=== PATIENT | female | born 1985 | race Hispanic/Latino ===

== ENCOUNTER 2017-02-05 17:22 | Emergency (ER) | payer BC ==
[2017-02-05 17:34] VITALS: BP 122/68; PULSE 87; RESP 18; TEMP 98.6; O2SAT 100
[2017-02-05] MEDS ORDERED: Iohexol 240 (50 ml) PO STA (18:31)
--- NOTE | 2017-02-05 18:52 | ED PDOC ---
HPI: Abdomen Time Seen by Provider: 02/05/17 18:15 Chief Complaint (Nursing): Abdominal Pain Chief Complaint (Provider): Right-Sided Abdominal Pain History Per: Patient History/Exam Limitations: no limitations Onset/Duration Of Symptoms: Hrs Additional Complaint(s): 18:15 Jack Tang is a 31 year old female that presents to the ED with a chief complaint of RLQ abdominal pain. Patient states that the pain began at 4:30 AM this morning and was initially sharp, but has since become dull. She reports that she went to [facility] in [place] earlier today where they have her a full physical exam, including a pelvic exam, as well as checked her urine , at which point she was advised to come to the ED for further evaluation. Her associated symptomms included nausea, which resolved after eating. She denies any nausea, vomiting, diarrhea, fever, chills, dysuria, heamturia, frequency, vaginal discharge, or vaginal bleeding. Of Note: Patient's [facility] was two weeks ago, and she is on a control pill. She did not taken any pain medication [employer]. Past Medical History Reviewed: Historical Data, Nursing Documentation, Vital Signs Vital Signs: Last Vital Signs Temp 98.6 F 02/05/17 17:32 Pulse 87 02/05/17 17:32 Resp 18 02/05/17 17:32 BP 122/68 02/05/17 17:32 Pulse Ox 100 02/05/17 18:58 - Medical History PMH: Asthma - Family History Family History: States: Unknown Family Hx - Home Medications Home Medications: Ambulatory Orders Medication Instructions Recorded Acetaminophen with Codeine 1 tab PO Q6 PRN #10 tab 12/31/15 [Tylenol with Codeine No. 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 Negative for: Vomiting, Diarrhea, Constipation Genitourinary Female: Negative for: Dysuria, Frequency, Hematuria, Vaginal Discharge, Vaginal Bleeding Physical Exam - Reviewed Nursing Documentation Reviewed: Yes Vital Signs Reviewed: Yes - Physical Exam Appears: Positive for: Non-toxic, No Acute Distress Head Exam: Positive for: ATRAUMATIC, NORMOCEPHALIC Skin: Positive for: Warm, Dry Cardiovascular/Chest: Positive for: Regular Rate, Rhythm. Negative for: Murmur Respiratory: Positive for: Normal Breath Sounds. Negative for: Wheezing Gastrointestinal/Abdominal: Positive for: Soft, Tenderness (mild TTP McBurney's Point), Other (negative psoas sign, negative obturator sign, negative Schrader's sign). Negative for: Mass, Distended, Guarding, Rebound Neurologic/Psych: Positive for: Alert, Oriented - Laboratory Results Result Diagrams: 02/05/17 19:00 02/05/17 19:00 - ECG O2 Sat by Pulse Oximetry: 100 (RA) Pulse Ox Interpretation: Normal Medical Decision Making Medical Decision Makin:30 Initial Impression: Abdominal Pain, ddx include Appendicitis vs. Ovarian Cyst vs. Mesenteric Adenitis vs. Colitis Initial Plan: * CMP * CBC * Urine Dipstick * Urine * Iohexol 50 ml PO * Toradol 15 mg IV * US Transvaginal * Reevaluation * Labs unremarkable EXAM: US Pelvis, Transvaginal CLINICAL HISTORY: 31 years old, female; Pain; Pelvic pain; Additional info: Right sided pelvic pain TECHNIQUE: Real-time transvaginal pelvic ultrasound (complete) with image documentation. Transvaginal imaging was used for better evaluation of the endometrium and adnexa. EXAM DATE/TIME: 02/05/2017 6:31 PM COMPARISON: No relevant prior studies available. FINDINGS: Uterus: At least 2 solid, focal myometrial masses are seen, compatible with fibroids. There is a 3.2 x 3.2 x 3.2 cm right fundal fibroid, which appears intramural in location. A second 0.9 x 0.7 x 0.9 cm right anterior fibroid is seen, which is likely subserosal in location. The myometrium also appears diffusely inhomogeneous, which could be due to diffuse fibroid replacement. Uterus is otherwise within normal limits in appearance. Measures 8.6 x 4.5 x 6.5 cm. Endometrial stripe does not appear abnormally thickened, measuring 5.1 mm. Right ovary: Mildly enlarged in size, measuring 4.7 x 3.2 x 4.9 cm. Contains a cystic lesion measuring 3.9 x 2.6 x 3.4 cm. This lesion is probably simple in nature internally, although it is suboptimally evaluated due to bowel gas, and on some images appears to contain fine internal septations. Recommend ultrasound follow-up in 6-12 weeks to document involution of this lesion. Left ovary: Within normal limits in appearance. Measures 2.1 x 2.1 x 1.0 cm. Flow seen in the left ovary on color and Doppler imaging, with no evidence of torsion. Cul-de-sac: Small amount is identified, which is most likely physiologic in nature. IMPRESSION: No evidence of ovarian torsion or other significant acute abnormality. 3.9 cm right ovarian cystic lesion. Please see above for a full description. DW pt findings and plan of care. Pt with normal WBC and normal appetite and no fever. This is very unlikely appendicitis. 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 Results given to patient. Scribe Attestation: Documented by Clare Mcdonald, acting as a scribe for Gwen Díaz MD. Provider Scribe Attestation: All medical record entries made by the Scribe were at my direction and personally dictated by me. I have reviewed the chart and agree that the record accurately reflects my personal performance of the history, physical exam, medical decision making, and the department course for this patient. I have also personally directed, reviewed, and agree with the discharge instructions and disposition. Disposition - Clinical Impression Clinical Impression: Abdominal pain, Ovarian cyst, Fibroid Counseled Patient/Family Regarding: Studies Performed, Diagnosis, Need For Followup, Rx Given - Disposition Referrals: Dylan Carranza DO [Staff Provider] - 02/08/17 Disposition: Routine/Home Disposition Time: 20:30 Condition: IMPROVED Prescriptions: Ibuprofen [Motrin Tab] 600 mg PO Q8 PRN #60 tab PRN Reason: Pain, Moderate (4-7) Instructions: Ovarian Cyst (ED), Uterine Fibroids (ED) Forms: [facility] ED School/Work Excuse
[2017-02-05] MEDS ORDERED: Iohexol 240 (50 ml) ONE (18:58)
[2017-02-05 19:17] LABS: BASO # 0.1 K/uL (0.0-0.2); BASO % 0.6 % (0.0-2.0); EOS # 0.1 K/uL (0.0-0.7); EOS % 0.9 % (0.0-4.0); HEMATOCRIT 38.3 % (34.0-47.0); LYMPH # 1.8 K/uL (1.0-4.3); LYMPH % 19.7 % (20.0-40.0); MEAN CELL VOLUME 85.9 fl (81.0-99.0); MEAN CORPUSCULAR HEMOGLOBIN 29.1 pg (27.0-31.0); MEAN CORPUSCULAR HGB CONC 33.9 g/dL (33.0-37.0); MEAN PLATELET VOLUME 8.8 fl (7.2-11.7); MONO # 0.7 K/uL (0.0-0.8); MONO % 7.2 % (0.0-10.0); NEUT # 6.5 K/uL (1.8-7.0); NEUT % 71.6 % (50.0-75.0); NRBC % 0.1 % (0.0-0.0); WHITE BLOOD COUNT 9.1 K/uL (4.8-10.8)
[2017-02-05 19:23] LABS: ALB/GLOB RATIO 1.1 (1.0-2.1); ALKALINE PHOSPHATASE 60 U/L (38-126); ALT/SGPT 32 U/L (9-52); AST/SGOT 29 U/L (14-36); BILIRUBIN,TOTAL 0.3 mg/dl (0.2-1.3); BLOOD UREA NITROGEN 14 mg/dl (7-17); CALCIUM 9.6 mg/dL (8.4-10.2); CARBON DIOXIDE 24 mmol/L (22-30); CHLORIDE 104 mmol/L (98-107); GFR AFRICAN-AMERICAN > 60; GLUCOSE,RANDOM 94 mg/dL (65-105); POTASSIUM 3.9 MMOL/L (3.6-5.0); SODIUM 137 mmol/l (132-148); TOTAL PROTEIN 7.9 G/DL (6.3-8.2)
--- NOTE | 2017-02-05 20:40 | US ---
EXAM: US Pelvis, Transvaginal CLINICAL HISTORY: 31 years old, female; Pain; Pelvic pain; Additional info: Right sided pelvic pain TECHNIQUE: Real-time transvaginal pelvic ultrasound (complete) with image documentation. Transvaginal imaging was used for better evaluation of the endometrium and adnexa. EXAM DATE/TIME: 02/05/2017 6:31 PM COMPARISON: No relevant prior studies available. FINDINGS: Uterus: At least 2 solid, focal myometrial masses are seen, compatible with fibroids. There is a 3.2 x 3.2 x 3.2 cm right fundal fibroid, which appears intramural in location. A second 0.9 x 0.7 x 0.9 cm right anterior fibroid is seen, which is likely subserosal in location. The myometrium also appears diffusely inhomogeneous, which could be due to diffuse fibroid replacement. Uterus is otherwise within normal limits in appearance. Measures 8.6 x 4.5 x 6.5 cm. Endometrial stripe does not appear abnormally thickened, measuring 5.1 mm. Right ovary: Mildly enlarged in size, measuring 4.7 x 3.2 x 4.9 cm. Contains a cystic lesion measuring 3.9 x 2.6 x 3.4 cm. This lesion is probably simple in nature internally, although it is suboptimally evaluated due to bowel gas, and on some images appears to contain fine internal septations. Recommend ultrasound follow-up in 6-12 weeks to document involution of this lesion. Left ovary: Within normal limits in appearance. Measures 2.1 x 2.1 x 1.0 cm. Flow seen in the left ovary on color and Doppler imaging, with no evidence of torsion. Cul-de-sac: Small amount is identified, which is most likely physiologic in nature. IMPRESSION: No evidence of ovarian torsion or other significant acute abnormality. 3.9 cm right ovarian cystic lesion. Please see above for a full description. Uterine fibroids, the largest measuring 3.2 cm. See above for remaining findings.
== END 2017-02-05 21:30 | disposition home or self-care (01) ==
LOC: H.ER 17:22
DX: R10.2 Pelvic and perineal pain (principal); D25.9 Leiomyoma of uterus, unspecified; N83.209 Unspecified ovarian cyst, unspecified side; J45.909 Unspecified asthma, uncomplicated; K52.9 Noninfective gastroenteritis and colitis, unspecified
CPT/HCPCS: 76830; 80053; 81025; 85025; 99283; Q9966